=== PATIENT | male | born 1995 | race Two or more races ===

== ENCOUNTER 2024-03-22 02:23 | Emergency (ER) | payer OTHER ==
--- NOTE | 2024-03-22 04:11 | ED Physician Documentation ---
PD HPI LOWER EXT INJURY - Stated complaint Stated Complaint: R LEG LAC - Chief complaint Chief Complaint: Laceration - History obtained from History obtained from: Patient - Additional information Additional information: HPI from patient. Patient is visiting [facility] and staying at an air [facility]. At approximately 2:00 AM this morning he tripped over a running fan, a blade of which caused a laceration to his right knee. He is UTD on tetanus immunization. Able to fully weight-bear and denies weakness, numbness PD PAST MEDICAL HISTORY - Past Medical History Past Medical History: No - Past Surgical History Past Surgical History: No - Allergies Allergies/Adverse Reactions: Allergies Allergy/AdvReac Type Severity Reaction Status Date / Time No Known Drug Allergies Allergy Verified 03/22/24 03:23 - Social History Does the pt smoke?: No Smoking Status: Never smoker PD ED PE NORMAL - Vitals Vital signs reviewed: Yes - General General: Alert and oriented X 3, No acute distress, Well developed/nourished - Extremities Extremities: No tenderness to palpate, Normal ROM s pain - Neuro Neuro: No motor deficit, No sensory deficit PD ED PE EXPANDED - Extremities LAWRENCE LE visual: 1 - laceration (2 cm length laceration, no active bleeding, approximately 0.5- 1cm separation of wound edges. no bony tenderness, no FB) Results - Vitals Vitals: Vital Signs - 24 hr 03/22/24 03/22/24 03:20 05:28 Temperature 36.7 C Heart Rate 88 82 Respiratory 16 18 Rate Blood Pressure 147/76 H 135/77 H O2 Saturation 100 98 Oxygen O2 Source Room air Procedures - Laceration (location) Lower extremity right Length in cm: 2 Wound type: Linear, Into subcut fat, Clean Neurovascular status: Sensory intact, Motor intact, Vascular intact Anesthesia: Lidocaine 1% Wound preparation: Hibiclens, Irrigated copiously NS, Wound explored Skin layer closure: Nylon, Interrupted, Size #-0 - enter number (3-0) Other: Patient tolerated well, No complications, Neurovascular intact, Tetanus UTD PD Medical Decision Making - ED course Complexity details: considered differential, d/w patient ED course: knee laceration with wound repair (sutures) as noted above in procedure note. Advised to follow up with PCP in 10-12 days for suture removal. return preca utions reviewed Departure - Departure Disposition: 01 Home, Self Care Clinical Impression: Laceration Condition: Good Instructions: ED Laceration Ext Sutr Stap Tape Comments: Follow-up with your primary care provider in 10 to 12 days for removal of the stitches. If you cannot arrange for the appointment with your primary care provider in that timeframe, other options include urgent care, walk-in clinics, or the nearest emergency department. Discharge Date/Time: 03/22/24 05:29
[2024-03-22] MEDS: LIDOCAINE 1% 2 ML VIAL SUBQ STA (04:45)
[2024-03-22] MEDS: BACITRACIN ZINC OINT 1 PACKET TOP STA (05:24)
[2024-03-22 05:30] VITALS: BP 135/77; O2SAT 98
== END 2024-03-22 05:29 | disposition home or self-care (01) ==
LOC: ED 02:23
DX: S81.011A Laceration without foreign body, right knee, initial encounter (principal); W22.8XXA Striking against or struck by other objects, initial encounter; W31.89XA Contact with other specified machinery, initial encounter; Y92.009 Unspecified place in unspecified non-institutional (private) residence as the place of occurrence of the external cause
CPT/HCPCS: 12001; 99283; A9270